=== PATIENT | female | born 1945 | race Caucasian/White ===

== ENCOUNTER 2021-04-23 02:38 | Inpatient (IN) | payer MEDICARE, MEDICAID, SELFPAY ==
[2021-04-23] VITALS (8 sets, daily range): BP systolic 113–148; BP diastolic 59–72; PULSE 80–102; RESP 16–19; TEMP 36.6–37.1; O2SAT 96–98
--- NOTE | 2021-04-23 02:47 | HPE_ITS ---
Date of service: 04/23/21 Time of Service: 06:30 Assessment and Plan Assessment and plan (1) Sepsis: Status: Acute Assessment and plan: Due to RLE cellulitis and ?diabetic foot ulcer. Await blood cultures done at [facility]. Obtain XR R foot and podiatry consult. IVF. Continue vancomycin/cefepime initiated at [facility]. Trend CRP. (2) Cellulitis of right lower extremity: Status: Acute Assessment and plan: As above (3) Acute kidney injury superimposed on chronic kidney disease: Status: Acute Assessment and plan: In setting of sepsis/dehydration. Provide IVF. Avoid nephrotoxic medications. (4) Near syncope: Status: Acute Assessment and plan: Monitor on tele. Obtain echo. Troponin and EKG negative at [facility]. (5) Type 2 diabetes mellitus: Assessment and plan: Will verify medication doses with daughter. Cover with SSI. Plan to continue long acting insulin once doses are confirmed. (6) Ambulatory dysfunction: Status: Acute Assessment and plan: Consult PT (7) DVT prophylaxis: Status: Acute Assessment and plan: SC heparin given FABIOLA (8) Discharge planning issues: Status: Acute Assessment and plan: Full code by default - needs to be verified with daughter if there are any advanced directives. History of Present Illness History of Present Illness Chief Complaint: weakness, near-syncope Narrative: MS Thapa is a 76 year old female with PMHx of IDDM2, HTN, hyperlipidemia, psoriasis, who was transferred to [facility] from [facility] ED where she had presented with weakness, difficulty getting up from a seated position and a near syncopal episode at home while trying to get up. The patient was found to be febrile to 100.6 Her RLE was hot, red, and nontender. She is not sure how long ago her leg turned red, but states it happens every winter. She had a negative EKG and troponin. She had a leucocytosis of 22.7, evidence of FABIOLA with Cr of 2.4 (last 1.5 3 years ago. She was hydrated intravenously and empirically initiated on vancomycing/cefepime. There was also a finding of eschar between digits 3 and 4. She was hemodynamically stable. Hospitalist admission was requested. By the time of my examination, she is feeling better. 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) Sensorineural hearing loss, bilateral (Acute 04/17/13) Medical History (Updated 04/23/21 @ 07:26 by Gia Urbina MD) Bilateral knee pain Chronic obstructive lung disease CKD (chronic kidney disease) Essential tremor 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 Hyperlipidemia Hypertension Obesity, morbid, BMI 40.0-49.9 Psoriasis Sensorineural hearing loss, bilateral (04/11/15) Shoulder pain Type 2 diabetes mellitus Uterine cancer Surgical History (Updated 04/23/21 @ 07:26 by Gia Urbina MD) H/O cataract extraction History of nasal surgery Hx of adenoidectomy Hx of colonoscopy Hx of hysterectomy Hx of tonsillectomy Family History Mother Cancer uterine Drug abuse Daughter Diabetes Hypertension Social History Smoking/Tobacco Use Status: Former Tobacco Use Quit Date: 05/13/89 Smoking risk assessment performed?: Yes Alcohol Intake: never Drug use: Never Substance use type: does not use Household members: children What is your relationship status?: Panel score (0-1 are the most socially isolated patients): 0 Do you feel safe at home: Yes Do you feel safe in your relationship?: Yes Meds Allergies and Home Medications Allergies Allergy/AdvReac Type Severity Reaction Status Date / Time No Known Allergies Allergy Verified 12/22/20 09:39 Home Medications Medication Instructions Recorded Confirmed Type albuterol sulfate 90 mcg/actuation 2 puff INHALATION Q4H PRN PRN 12/22/20 04/23/21 History aerosol inhaler amantadine HCl 100 mg capsule 100 mg PO DAILY AM 12/22/20 04/23/21 History amlodipine 10 mg tablet 10 mg PO DAILY 12/22/20 04/23/21 History clobetasol 0.05 % topical cream 1 applic TOPICAL BID 12/22/20 01/24/21 History dulaglutide 0.75 mg/0.5 mL 0.75 mg SUBCUT QWEEK 12/22/20 01/24/21 History subcutaneous pen injector fluticasone propionate 110 2 puff INHALATION BID 12/22/20 04/23/21 History mcg/actuation HFA aerosol inhaler folic acid 1 mg tablet 1 mg PO DAILY 12/22/20 01/24/21 History glipizide 5 mg tablet 5 mg PO DAILY tab 12/22/20 04/23/21 History insulin detemir U-100 100 unit/mL 28 unit SUBCUT DAILY ml 12/22/20 04/23/21 History (3 mL) subcutaneous pen lisinopril 5 mg tablet 5 mg PO DAILY 12/22/20 04/23/21 History mecobalamin (vitamin B12) 1,000 1,000 mcg SUBLINGUAL .3x week tab 12/22/20 01/24/21 History mcg disintegrating tablet,sublingual mometasone 100 mcg/actuation HFA 2 puff INHALATION BID 12/22/20 04/23/21 History aerosol inhaler primidone 50 mg tablet 50 mg PO TID tab 12/22/20 04/23/21 History simvastatin 20 mg tablet 20 mg PO DAILY 12/22/20 04/23/21 History topiramate 25 mg sprinkle capsule 25 mg PO BID 12/22/20 01/24/21 History triamcinolone acetonide 1 applic TOPICAL BID 04/23/21 04/23/21 History Allergy/Medication Comments:: Our medication list does not match the list that came with the patient from [facility]. We will verify it with the patient's daughter. Exam Narrative Exam Narrative: General: Very pleasant elderly female, A&Ox2, poor history provider, tremulous Neurological: A&Ox2, tremulous, no focal deficits Psychiatric: Appropriate speech pattern/content Skin: Psoriasis throughout; RLE erythema 1[address] to the knee. R foot has dressing on plantar side. Erythema L dorsal surface of the foot HEENT: Atraumatic, normocephalic, EOMI, dry MM, clear oropharynx, no submandibular or cervical lymphadenopathy, no goiter or JVD Cardiovascular: RRR, no m/r/g Lungs: CTAB (diminished) Gastrointestinal: Soft, nontender, nondistended Genitourinary: deferred Extremities: +1 BLE edema; see skin exam Results Imaging Imaging Studies: Awaiting CXR read information (reported to be negative by [facility] ED provider). Labs Result diagrams: 04/23/21 05:35 04/23/21 05:35
[2021-04-23] MEDS: Lactated Ringers 1,000 ML 75 ML IV ×2 (04:20→18:25)
[2021-04-23 07:42] LABS: Abs Immature Grans 0.24 10^3/uL (0.0-0.06); Absolute Basophil Count 0.11 10^3/uL (0.0-0.2); Basophils % 0.5; Eosinophils % 0.5; HCT 37.2 % (36.0-46.0); HGB 11.7 g/dL (11.2-15.7); Immature Grans % 1.1; MCH 29.1 pg (27.0-33.0); MCHC 31.5 % (32.0-36.0); MCV 92.5 fL (80-95); Neutrophils % 81.9; Nucleated RBC 0 %; RBC 4.02 10^6/uL (3.93-5.22); RDW 14.5 % (11.7-14.6); RDW-SD 49.1 fL; WBC 21.77 10^3/uL (4.4-10.8)
[2021-04-23 07:43] LABS: Absolute Eosinophil Count 0.11 10^3/uL (0.0-0.7); Absolute Lymphocyte Count 2.61 10^3/uL (1.2-3.4); Absolute Monocyte Count 0.87 10^3/uL (0.1-0.8); Absolute Neutrophil Count 17.83 10^3/uL (1.2-6.7)
[2021-04-23 07:54] LABS: Anion Gap 6.7 mmol/L (3-11); BUN 27 mg/dL (7-18); C-Reactive Protein 17.53 mg/dL (0.0-0.3); CO2 25.3 mmol/L (21.0-32.0); CREATININE 2.3 mg/dL (0.55-1.02); Calcium 8.5 mg/dL (8.5-10.1); Chloride 102 mmol/L (98-107); Estimated GFR 20.73 (mL/min/1.73m2); Glucose 160 mg/dL (74-106); Magnesium 1.6 mg/dL (1.8-2.4); Potassium 4.4 mmol/L (3.5-5.1); Sodium 134 mmol/L (136-145)
[2021-04-23 08:19] LABS: Procalcitonin 2.8 ng/mL
--- NOTE | 2021-04-23 09:54 | PT.INIE ---
Date of service: 04/23/21 Time of Service: 09:53 PT Notes Visit Reasons: cellulitis RLE, near-syncope Inpatient Physical Therapy Evaluation Date: 04/23/2021 Referring Doctor: Dr. Gia Urbina PT Orders: PT CONSULT: Limited ability Precautions: Fall, standard, activities as tolerated Patient Profile/Admitting Diagnosis: Patient is a 76 year old female with PMHx of IDDM2, HTN, hyperlipidemia, psoriasis, who was transferred to [facility] from [facility] where she had presented with weakness, difficulty getting up from a seated position and a near syncopal episode at home while trying to get up. 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) Sensorineural hearing loss, bilateral (Acute 04/17/13) Medical History (Updated 04/23/21 @ 07:26 by Gia Urbina MD) Bilateral knee pain Chronic obstructive lung disease CKD (chronic kidney disease) Essential tremor 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 Lives with her daughter. Current Functional Limitations: Functional mobility, community distance ambulation Equipment Owned/DME: Cane Subjective: Patient states has been feeling a little better today since admission to [facility]. Denies any significant pain. States that she was sitting in the chair earlier for breakfast. Did walk with the nurse Dario who indicated she use her IV pole to assist with her walking across the room to the toilet. Objective: General Observation: Telemetry, IV left upper extremity Mental Status: Alert and oriented x3 Pain: 0/10 ROM: Right Upper Extremity: Shoulder, elbow and wrist within functional limits Left Upper Extremity: Shoulder, elbow and wrist within functional limits Right Lower Extremity: Hip, knee and ankle within functional limit Left Lower Extremity: Hip, knee and ankle are within functional Strength: Right Upper Extremity: Glenohumeral joint flexion 4/5, abduction 4 -/5, bicep and tricep 4/5, good network coordinator Left Upper Extremity: Glenohumeral joint flexion 4/5, abduction 4 -/5, bicep and triceps 4/5, good network coordinator Right Lower Extremity: Straight leg raise with 0 degree lag. Hip flexion, quads and hamstrings 4/5, hip abduction 4 -/5, hip adduction 5/5. Ankle dorsiflexion and plantarflexion 4/5 Left Lower Extremity: Straight leg raise with 0 degree lag. Hip flexion, quads and hams is 4/5, hip abduction 4 -/5, hip adduction 5/5. Ankle dorsiflexion plantarflexion 4/5 Sensation: Intact sensation light touch throughout bilateral upper and lower extremities Bed Mobility/Transfers: Supine to sit: Min assist x1, head of bed 40 degrees Sit to supine: Min assist x1 Sit to stand: Standby assist Stand to sit: Standby assist Bed mobility: Unable to transition to head of bed. Did require mod assist x2 to reposition in bed with head of bed at 0. Gait: Ambulate 15 feet x 2 with front wheel walker and standby assist. Patient did indicate she was feeling a little fatigued towards the end of her walking. Balance: Static Sitting: Normal Dynamic Sitting: Normal Static Standing: Fair Dynamic Standing: Fair Special Tests: Mobility Limitations Standardized Measure [facility] AM-PAC 6 clicks Basic Mobility Inpatient Short Form: Raw Score:18 Standardized Score: 43.63 CMS Score: 46.58% Informed Consent/Education: Patient instructed in purpose of PT consult and plan of care. Assessment: Patient is a 76 year old female referred to physical therapy services with the diagnosis of near syncope, generalized weakness and limited ability. Patient presents with clinical signs and symptoms consistent with above diagnosis, as demonstrated by the following impairment level findings: Motor function, muscle control. Impairments are contributing to the following functional limitations: AMPAC score. Did recommend use of front wheel walker while staying in the hospital as she was using IV pole which was quite steady enough for her. Am hopeful that she will be able to resume community ambulation distances with a cane as per baseline. Patient presents with clinical signs and symptoms consistent with diagnosis, as demonstrated by the following impairment level findings: 1. Decreased activity tolerance 2. Generalized weakness 3. Fatigue 4. SOB Impairments are contributing to the following functional limitations: 1. Decreased activity tolerance 2. Increased dependence transfers 3. Difficulty with ambulation Patient is assessed as a X Low 19597 [] Moderate 64789 [] High 37858 complexity based on the following: History: See above Examination: See above Presentation: Stable Decision Making: AM PAC score 46.58% Goals: Goals X1 week 1. Supine-Sit: Independent 2. Sit-Supine : Independent 3. Sit-Stand: Independent 4. Stand-Sit: Independent 5. Bed-Chair: Independent 6. Chair-Bed: Independent 7. Gait: Community distances greater than 250 feet with single-point cane 8. Stairs: Standby assist Plan of Care/Treatment Plan: 1-2x/day, 7 days/week x 1 week. Plan of care has been reviewed with the PRIMARY CARE COORDINATOR providing the service under Physical Therapy direction. Initiate Physical Therapy intervention for strengthening, bed mobility, transfers, gait, stairs, balance training, use of assistive device. DISCHARGE RECOMMENDATIONS: X Home with services: Home health physical therapy TREATMENT CODE/TIME: 51415. 9:53?10:20 Thank you for this referral. Jesus Mcfarland PT, DPT Disclaimer: This note was created using Kik voice recognition software. It was reviewed for major content. However, there may be multiple small discrepancies and errors due to the voice recognition aspects of the software.
[2021-04-23] MEDS: Nystatin POWDER 60 GM JAR TP ×3 (10:01→20:15)
--- NOTE | 2021-04-23 10:10 | INITIAL_ITS ---
- If Service Date Differs Date of service: 04/23/21 Time of Service: 10:10 Care Management Initial Assess REASON FOR HOSPITALIZATION:: Cellulitis RLE, near-syncope PAST MEDICAL HISTORY/PAST SURGICAL HISTORY:: Medical History (Updated 04/23/21 @ 07:26 by Gia Urbina MD). Bilateral knee pain. Chronic obstructive lung disease. CKD (chronic kidney disease). Essential tremor. 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 Hyperlipidemia. Hypertension. Obesity, morbid, BMI 40.0- 49.9. Psoriasis. Sensorineural hearing loss, bilateral (04/11/15). Shoulder pain. Type 2 diabetes mellitus. Uterine cancer. Surgical History (Updated 04/23/21 @ 07:26 by Gia Urbina MD). H/O cataract extraction. History of nasal surgery. Hx of adenoidectomy. Hx of colonoscopy. Hx of hysterectomy. Hx of tonsillectomy PREVIOUS FUNCTIONAL STATUS/SOCIAL/FAMILY SUPPORTS:: Resides in [place] with her daughterInez ([phone], ) who provides assistance with ADLs. CURRENT FUNCTIONAL STATUS:: Jazmyne is lying in bed sleeping when CM observes her. Jazmyne had a long night and was not admitted to the floor until the car body inspector hours-CM permitted her to rest. ADVANCE DIRECTIVES:: None on file at [facility]. Has patient been provided with info about the portal/API?: No Did the patient sign up for the portal?: No CODE STATUS:: Full Code INSURANCE COVERAGE / FINANCIAL ISSUES:: Medicare. Medicaid CURRENT HOME/COMMUNITY SERVICES/EQUIPMENT:: [place]: followed by ENT has hearing aides. PRIMARY CARE PHYSICIAN:: Manuel Jason POTENTIAL DISCHARGE NEEDS:: Evaluations for increased supports. Follow up appointments. PATIENT/FAMILY EDUCATION NEEDS:: Review discharge instructions, discuss Ask Me Three. ANTICIPATED BARRIERS TO DISCHARGE:: None identified. TRANSPORTATION:: Via private vehicle with Inez nowak. PLAN:: Anticipate Jazmyne will return home with her daughterInez when ready per MD. She will be evaluated for increased services supports prior to discharge, will be followed by wound care and have podiatry consult as well. Anticipate ongoing wound managment and orders for [facility] RN/PT/OT through [facility] upon discharge. CM continues to follow.
--- NOTE | 2021-04-23 11:44 | WOUNDCONS_ITS ---
- If Service Date Differs Date of service: 04/23/21 Time of Service: 11:00 Wound Initial Evaluation Narrative: Patient is a 76 yof seen here for Sepsis and Cellulitis. She has a PMX significant for DM2 Ambulatory dysfunction and acute kidney injury. She agrees to have a wound consult performed. H&P, labs, allergies, and other pertinent information were reviewed. - Wound Right Lower Tib/Fib(lower leg) Wound Type: Other (cellulitis) Wound General Appearance: Reddened, Unapproximated Wound Bed Greatest Portion: Dusky Red Wound Surrounding Tissue Appearance: Dark Red Wound Length: 31.3 cm Wound Width: 19.4 cm Wound Depth: 0.1 cm Wound Drainage Amount: None Wound Drainage Odor: None/Absent Wound Drainage Description: No drainage Wound Topical Solution/Irrigant: Antibiotic Irrigant Wound Debridement Method: Mechanical Wound Debridement Result: Other (dry skin removed) Wound Debridement Amount of Tissue Removed: Moderate Left Foot Wound Type: Other Wound General Appearance: Reddened, Unapproximated (dry, flaky skin) Wound Surrounding Tissue Appearance: Dark Red Wound Length: 7 cm Wound Width: 19 cm Wound Depth: 0.1 cm Wound Drainage Amount: None Wound Drainage Odor: None/Absent Wound Drainage Description: No drainage Wound Topical Solution/Irrigant: Antibiotic Irrigant Wound Debridement Method: Mechanical Wound Debridement Result: Healthy Tissue Revealed Wound Debridement Amount of Tissue Removed: Moderate - Circulation, Sensation, Motion Edema Degree: 3+ Peripheral Pulse Strength: Normal Capillary Refill: Less than 3 seconds Sensation Description: Within Normal Limits Skin Temperature: Cool Skin Color: Normal - Pain Pain Level: 0 Patient is a diabetic. the bottoms of her feet and between the toes are cracked and open and make an area that is a portal for entry of infection. - Treatment/Dressing Change Topicals/Ointments: Other (lachydrin) Cleanse With: Anasept, Debrisoft Additional Other Comments: Podiatry consult requested - Recomendation Recomendation:: Right lower extremity. [place] area with Anasept spray and let dwell for two minutes. Clean with a moistened Debrisoft sponge. Allow to dry. Apply Ammonium Lactate lotion to the affected area. Perform daily. Left foot. [place] area with Anasept spray and let dwell for two minutes. Clean with a moistened Debrisoft sponge. Allow to dry. Apply Ammonium Lactate lotion to the affected area. Perform daily. Physcian/Nurse Practioner Notified: Yes (Dr. Pearson) Referrals: Podiatry Treatment Time - Time Total Time Spent with Patient: 75 minutes - Patient Will be Seen Weekly Treatment: daily - For: For:: 1 week
[2021-04-23] MEDS: Lachydrin 12% LOTION 225 GM BTL TP (12:08)
[2021-04-23] MEDS: CEFEPIME 1 GM in Normal Saline 50 ML IVPB (12:09)
[2021-04-23 15:22] LABS: Platelet Count 244 10^3/uL (130-400)
[2021-04-23] MEDS: Heparin 5,000 UNITS/ML VIAL 5000 UNITS SC ×2 (15:40→22:46)
[2021-04-23] MEDS: Insulin Aspart 300 UNITS/3 ML PEN SC ×2 (17:09→22:51)
--- NOTE | 2021-04-23 19:22 | W.PODCONSULT ---
Date of service: 04/23/21 Time of Service: 19:22 History of Present Illness History of Present Illness Chief Complaint: cellulitis RLE/fissures Narrative: 76-year-old female seen at bedside for evaluation extensive scaling affecting both feet with multiple fissures. Admitted with cellulitis of the right foot. 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 Hyperlipidemia Hypertension Obesity, morbid, BMI 40.0-49.9 Psoriasis Sensorineural hearing loss, bilateral (04/11/15) Shoulder pain Type 2 diabetes mellitus Uterine cancer Surgical History H/O cataract extraction History of nasal surgery Hx of adenoidectomy Hx of colonoscopy Hx of hysterectomy Hx of tonsillectomy Family History Mother Cancer uterine Drug abuse Daughter Diabetes Hypertension Social History Smoking/Tobacco Use Status: Former Tobacco Use Quit Date: 05/13/89 Smoking risk assessment performed?: Yes Alcohol Intake: never Drug use: Never Substance use type: does not use Household members: children What is your relationship status?: Panel score (0-1 are the most socially isolated patients): 0 Do you feel safe at home: Yes Do you feel safe in your relationship?: Yes Exam Narrative Exam Narrative: 76-year-old female seen at bedside who was admitted with cellulitis of right lower extremity and sepsis with a known history of psoriasis. She verbalizes that she sees a physician down in [place] who manages her psoriasis. Unclear but she has been applying medication the last time she was seen for this problem. On examination she has cellulitis to the mid acuña region of her right lower extremity both anteriorly and to a lesser extent posteriorly. The skin shows extensive psoriatic changes affecting the plantar aspects of both feet, web spaces, dorsal aspect of the feet, both legs going up to her thighs as well as on her upper extremity. She has fissuring along the lateral aspect at the level of the fifth metatarsal base of the left foot, fissuring of the second and third webspaces of the right foot with dried blood noted, plantar midfoot region, and lateral mid fifth metatarsal region. All of these stages are partial-thickness in nature. None of them appear to be grossly infected at this time they are most likely the portal of entry for the cellulitis affecting the right lower extremity. The toenails are thickened yellowed dystrophic hypertrophic elongated and in need of debridement. Whether the nails are fungal or psoriatic is unclear, nevertheless treatment ranging the same and that would be debridement for comfort measures. Muscle groups appear to be 5 out of 5 bilaterally although somewhat diminished . Skeletal exam appears grossly benign. Small joint degenerative arthritic changes noted, no acute findings. Neurologically toes are downgoing. No focal deficit noted at this time. Impressions: Extensive psoriatic changes both lower extremities Cellulitis right lower extremity Multiple partial-thickness fissures as above Dystrophic nails psoriatic versus fungal Plan: Continue with current cefepime for cellulitis. Triamcinolone acetonide will be discontinued and its potency will not be effective in managing pressure and I will order potent steroid clobetasol 0.05% cream for daily application. I manually electrically debrided all toenails to patient tolerance as well as the patient's affecting both feet partial thickness. No sinus tracking or undermining was appreciated. She has extensive plaque formation which was reduced to patient tolerance. I did explain to Jazmyne that the psoriasis may be manageable but requires active and ongoing home utilization of creams and ointments steroid on a regular basis to maintain suppression of her psoriasis. Thank you for the consultation. Dictated with Sultana naturally speaking not reviewed for accuracy Results Last Vital Signs Temp 36.7 C 04/23/21 15:36 Pulse 102 H 04/23/21 15:36 Resp 19 04/23/21 15:36 BP 148/59 H 04/23/21 15:36 Pulse Ox 98 04/23/21 15:36 Labs Result diagrams: 04/23/21 15:14 04/23/21 07:35 Labs: Laboratory Results - last 24 hr 04/23/21 04/23/21 04/23/21 07:35 07:35 07:35 WBC 21.77 H RBC 4.02 Hgb 11.7 Hct 37.2 MCV 92.5 MCH 29.1 MCHC 31.5 L RDW 14.5 Plt Count MPV Immature Gran % 1.1 Neutrophils % 81.9 Lymphocytes % 12.0 Monocytes % 4.0 Eosinophils % 0.5 Basophils % 0.5 Nucleated RBC % 0 Absolute Neutrophils 17.83 H Absolute Lymphocytes 2.61 Absolute Monocytes 0.87 H Absolute Eosinophils 0.11 Absolute Basophils 0.11 Sodium 134 L Potassium 4.4 Chloride 102 Carbon Dioxide 25.3 Anion Gap 6.7 BUN 27 H Creatinine 2.3 H Estimated GFR/1.73 m2 20.73 Glucose 160 H Calcium 8.5 Magnesium 1.6 L C-Reactive Protein 17.53 H Procalcitonin 2.8 04/23/21 15:14 WBC RBC Hgb Hct MCV MCH MCHC RDW Plt Count 244 MPV Immature Gran % Neutrophils % Lymphocytes % Monocytes % Eosinophils % Basophils % Nucleated RBC % Absolute Neutrophils Absolute Lymphocytes Absolute Monocytes Absolute Eosinophils Absolute Basophils Sodium Potassium Chloride Carbon Dioxide Anion Gap BUN Creatinine Estimated GFR/1.73 m2 Glucose Calcium Magnesium C-Reactive Protein Procalcitonin
--- NOTE | 2021-04-24 | DI.US_ITS ---
Exam(s) US LOWER EXTREMITY VENOUS RT EXAM: US LOWER EXTREMITY VENOUS RT CLINICAL HISTORY: RLE edema TECHNIQUE: Grayscale, color, and doppler imaging of the deep venous system of the right lower extrem ity was performed. COMPARISON: No exams were available for comparison FINDINGS: There is no evidence of intraluminal thrombus and there is normal compression and augmentation demons trated within the common femoral vein, femoral vein, and popliteal vein. In the ipsilateral calf the interrogated veins also exhibit normal compression/ augmentation properti es. The ipsilateral saphenofemoral junction is patent. IMPRESSION: 1. No evidence of DVT in the right lower extremity. DATA REPOSITORY:
[2021-04-24] MEDS: CEFEPIME 1 GM in Normal Saline 50 ML IVPB ×2 (00:10→11:35)
[2021-04-24] MEDS: VANCOMYCIN 750 MG in Normal Saline 250 ML 250 MG IV (04:23)
[2021-04-24] MEDS: Heparin 5,000 UNITS/ML VIAL 5000 UNITS SC ×3 (06:17→22:33)
[2021-04-24 07:33] LABS: Abs Immature Grans 0.23 10^3/uL (0.0-0.06); Absolute Eosinophil Count 0.56 10^3/uL (0.0-0.7); Absolute Lymphocyte Count 3.65 10^3/uL (1.2-3.4); Absolute Monocyte Count 1.51 10^3/uL (0.1-0.8); Basophils % 0.4; Eosinophils % 2.6; HGB 11.4 g/dL (11.2-15.7); Immature Grans % 1.1; Lymphocytes % 16.9; MCH 28.9 pg (27.0-33.0); MCHC 30.8 % (32.0-36.0); MCV 93.9 fL (80-95); MPV 10.9 fL (8.0-11.0); Nucleated RBC 0 %; Platelet Count 247 10^3/uL (130-400); RBC 3.94 10^6/uL (3.93-5.22); RDW 14.6 % (11.7-14.6); RDW-SD 50.7 fL; WBC 21.59 10^3/uL (4.4-10.8)
[2021-04-24 07:41] VITALS: BP 156/32; PULSE 96; RESP 20; TEMP 36.6; O2SAT 99
[2021-04-24 07:41] LABS: Absolute Basophil Count 0.09 10^3/uL (0.0-0.2); Absolute Neutrophil Count 15.54 10^3/uL (1.2-6.7)
[2021-04-24 07:46] LABS: Diff Comment Diff Reviewed; RBC Morphology Normal
[2021-04-24 07:51] LABS: Anion Gap 8.5 mmol/L (3-11); BUN 23 mg/dL (7-18); CO2 24.5 mmol/L (21.0-32.0); CREATININE 1.9 mg/dL (0.55-1.02); Calcium 8.2 mg/dL (8.5-10.1); Chloride 106 mmol/L (98-107); Estimated GFR 25.84 (mL/min/1.73m2); Glucose 178 mg/dL (74-106); Potassium 4.2 mmol/L (3.5-5.1); Sodium 139 mmol/L (136-145)
--- NOTE | 2021-04-24 08:00 | DI.US_ITS ---
APPROVED REPORT EXAM: Comprehensive 2D, Doppler, and color-flow Echocardiogram Patient Location: In-Patient Room/Bed: 212 Book Solicitor: Rebeca Billy RDCS (AE) Indications: Near Syncope Other Information Study Quality: Adequate Conclusion Left Ventricle : The left ventricle is normal size. The left ventricular systolic function is normal. The left ventricular ejection fraction is within the normal range. There is normal left ventricular wall thickness. There is normal LV segmental wall motion. LVEF is 60%. Right Ventricle : Right ventricle is grossly normal in size. Right ventricular systolic function is g rossly normal. The RVSP is 35.4 mmHg. Atria : The left atrium size is normal. The right atrium size is normal. Great Vessels : The aortic root is normal in size. The ascending aorta is normal in size. Aortic arch is not well visualized. IVC is normal in size and collapses >50% with inspiration. See remainder of study for further details. Wall motion Left Ventricle The left ventricle is normal size. The left ventricular systolic function is normal. The left ventric ular ejection fraction is within the normal range. There is normal left ventricular wall thickness. T here is normal LV segmental wall motion. There is no ventricular septal defect visualized. LVEF is 60 %. Right Ventricle Right ventricle is grossly normal in size. Right ventricular systolic function is grossly normal. The RVSP is 35.4 mmHg. Atria The left atrium size is normal. The right atrium size is normal. The interatrial septum is intact wit h no evidence for an atrial septal defect. Aortic Valve The aortic valve is normal in structure. Aortic valve is trileaflet. There is no aortic valvular sten osis. No aortic regurgitation is present. Mitral Valve The mitral valve is normal in structure. No evidence of mitral valve stenosis. Trace mitral regurgita tion. Tricuspid Valve The tricuspid valve is normal in structure. There is no tricuspid valve stenosis. Trace tricuspid reg urgitation. Pulmonic Valve The pulmonary valve is normal in structure. There is no pulmonic valvular stenosis. There is no pulmo jerry valvular regurgitation. Great Vessels The aortic root is normal in size. The ascending aorta is normal in size. Aortic arch is not well vis ualized. IVC is normal in size and collapses >50% with inspiration. Pericardium There is no pericardial effusion. 2D Dimensions IVSD d PLAX 0.99 cm F: 0.6-1.0 LV Vol A2C d MOD 83.8 mL LVPW d PLAX 0.97 cm F: 0.6 - 1.0 LV Vol A4C d MOD 78.1 mL LVID d PLAX 4.24 cm F: 3.8 - 5.2 LA vol/ BSA A2C s A-L 18.6 mL/m2 LVDs 2.80 cm F: 2.2 - 3.5 LA vol/ BSA A4C s A-L 23.9 mL/m2 Ao Root d 2.96 cm F: 2.7 - 3.3 LA Vol/ BSA Biplane s A-L 22.1 mL/m2 RA Area A4C 10.60 cm2 LA Area A4C s MOD 16.39 cm2 RA Vol/ BSA A4C s A-L 12.5 mL/m2 LA Area A2C s MOD 13.79 cm2 Ao Asc Diam d 3.11 cm F: 2.3 - 3.1 LV EF A4C MOD 59.9 % LV EF Teichholz 61.7 % LV EF A2C MOD 60.1 % LVEF (Becerra's) 59.35 % F: 54 - 74 LV EF Biplane MOD 59.4 % LV Volume 64.03 mL F: 46 - 106 SV 48.41 mL LV Volume Index 36.58 mL/m2 F: 29 - 61 SV Index 27.59 mL/m2 LV Vol Biplane MOD 81.6 mL FS 32.85 % M-Mode TAPSE 2.40 cm (M/F) >1.7 LV Diastology MV E' medial 0.083 (>0.07 m/s) MV E' lateral 0.105 (>0.1 m/s) Aortic Valve LVOT Area 3.01 cm2 AoV Area Vmax 2.61 cm2 LVOT Vmax 1.07 m/s AoV Area/ BSA (Vmax) 1.49 cm2/m2 LVOT Mean Osito. 0.70 m/s HARJEET Mean Osito. 2.33 cm2 LVOT Peak Grad 4.6 mmHg HARJEET Mean Osito. Index 1.33 cm2/m2 LVOT Mean Grad 2.3 mmHg LVOT VTI 0.208 m LVOT Diam s 1.95 cm AoV Vmax 1.23 m/s Velocity Ratio 0.86 AoV Mean Osito. 0.90 m/s AoV Peak Grad 6.1 mmHg LVOT SV 62.75 mL AoV Mean Grad 3.6 mmHg AoV VTI 0.233 m AoV Area VTI 2.69 cm2 AoV Area/ BSA (VTI) 1.53 cm/m2 Pulmonary Valve PV Vmax 1.10 (0.5-1.5 m/s) RVOT Peak Gr. 3.66 mmHg PV Peak Grad 4.8 mmHg RVOT Mean Gr. 1.95 mmHg PV Mean Grad 2.6 mmHg RVOT VTI 0.219 m PV VTI 0.186 m RVOT Vmax 0.96 m/s Tricuspid Valve TR Peak Grad 32.3 mmHg TR Vmax 2.85 m/s RA Pressure 3.00 mmHg RVSP (TR) 35.4 mmHg
[2021-04-24] MEDS: Insulin Aspart 300 UNITS/3 ML PEN SC ×3 (08:11→21:13)
[2021-04-24] MEDS: Doxazosin 1 MG TAB PO (08:12)
[2021-04-24] MEDS: amLODIPine 10 MG TAB PO (08:12)
[2021-04-24] MEDS: Clobetasol 0.05% CREAM 15 GM TUBE TP (08:12)
[2021-04-24] MEDS: Nystatin POWDER 60 GM JAR TP ×3 (08:12→21:14)
[2021-04-24] MEDS: Folic Acid 1 MG TAB PO (08:12)
[2021-04-24] MEDS: Metoprolol CR 25 MG TABCR PO (08:12)
[2021-04-24] MEDS: Lachydrin 12% LOTION 225 GM BTL TP (08:22)
--- NOTE | 2021-04-24 09:00 | DI.RAD_ITS ---
Exam(s) XR FOOT RT COMPLETE EXAM: XR FOOT RT COMPLETE CLINICAL HISTORY: R foot wounds. TECHNIQUE: 2D digital imaging was performed. COMPARISON: No exams were available for comparison FINDINGS: There is generalized soft tissue swelling of the dorsal aspect of the foot. There is no evidence of fracture nor diastasis of the Lisfranc joint. No osseous lesions. No erosio ns. No radiographic of osteomyelitis. On the lateral view there is a small calcification seen just dorsal to the head of the great toe prox imal phalanx. This measures approximately 1mm. Possibly related to prior avulsion injury at this le kayla. IMPRESSION: Findings as above but no radiographic evidence of osteomyelitis DATA REPOSITORY: RADIATION DOSE DELIVERED:
[2021-04-24] MEDS: Normal Saline Flush 10 ML SYR IVP ×2 (12:18→21:13)
--- NOTE | 2021-04-24 12:54 | PT.INTREAT ---
Date of service: 04/24/21 Time of Service: 11:21 PT Notes Visit Reasons: Cellulitis RLE,Near-Syncope Inpatient Physical Therapy Treatment Note [facility] Date: 04/24/2021 PRECAUTIONS: Fall, Activity as tolerated SUBJECTIVE: Jazmyne is pleasant and agreeable to participating in PT. She states that she is feeling better, although continues to feel weaker than her baseline. She is agreeable to using FWW at home if she discharges to home prior to regaining full strength. OBJECTIVE: PAIN: No c/o pain BED MOBILITY/TRANSFERS Sit-stand: I Stand-sit: I Bed-Chair: I Chair-bed: I GAIT Assistive Device: FWW Weight bearing: Full Assist: S Distance: 300' STAIRS: Up/down 3x4 and 2x6 using B rails and a step-over pattern independently. ASSESSMENT: Patient tolerated session without complaint. She demonstrates steady gait and pacing with use of FWW. PLAN: Continue with global strengthening for improved activity tolerance. TREATMENT CODE/TIME: 19 minutes; 00154 (11:21)
[2021-04-24 15:30] VITALS: BP 149/69; PULSE 85; RESP 18; TEMP 36.6; O2SAT 99
--- NOTE | 2021-04-24 16:19 | PGE_ITS ---
Date of Service Date of service: 04/24/21 Time of Service: 16:19 Assessment and Plan Assessment and plan (1) Sepsis: Start date: 04/24/21 Start time: 16:33 Status: Acute Assessment and plan: Due to RLE cellulitis and ?diabetic foot ulcer. BC positive at [facility]. Unsure what is growing or sensitivities. Micro looking into that. Repeat BC in am, crp podiatry consult, no evidence of osteo by xray IVF dcd No dvt to RLE Continue vancomycin/cefepime Trend CRP. (2) Cellulitis of right lower extremity: Start date: 04/24/21 Start time: 16:34 Status: Acute Assessment and plan: As above (3) Acute kidney injury superimposed on chronic kidney disease: Start date: 04/24/21 Start time: 16:35 Status: Acute Assessment and plan: In setting of sepsis/dehydration. improving with hydration, dcd IVF Avoid nephrotoxic medications. (4) Near syncope: Start date: 04/24/21 Start time: 16:35 Status: Acute Assessment and plan: No reports on teley, dc. Echo: Conclusion Left Ventricle : The left ventricle is normal size. The left ventricular systolic function is normal. The left ventricular ejection fraction is within the normal range. There is normal left ventricular wall thickness. There is normal LV segmental wall motion. LVEF is 60%.Right Ventricle : Right ventricle is grossly normal in size. Right ventricular systolic function is grossly normal. The RVSP is 35.4 mmHg. Atria : The left atrium size is normal. The right atrium size is normal. Great Vessels : The aortic root is normal in size. The ascending aorta is normal in size. Aortic arch is not well visualized. IVC is normal in size and collapses >50% with inspiration. Troponin and EKG negative at [facility]. (5) Psoriasis: Start date: 04/24/21 Start time: 16:38 Status: Acute Assessment and plan: Uses cream, c/o itching, entire body is covered with psoriasis. She would benefit from a harbor pilot to treat. Will start low dose prednisone to treat psoriasis to see if there is any relief (6) Type 2 diabetes mellitus: Start date: 04/24/21 Start time: 16:39 Assessment and plan: Cover with SSI. Plan to continue long acting insulin once doses are confirmed. (7) Ambulatory dysfunction: Start date: 04/24/21 Start time: 16:39 Status: Acute Assessment and plan: working with PT (8) DVT prophylaxis: Start date: 04/24/21 Start time: 16:40 Status: Acute Assessment and plan: SC heparin given FABIOLA (9) Discharge planning issues: Start date: 04/24/21 Start time: 16:40 Status: Acute Assessment and plan: Full code by default - needs to be verified with daughter if there are any advanced directives. Subjective Subjective Patient reports: no new complaints Interval history since last seen: Patient has no complaints. RLE with receding erythema. Positive BC from [facility] on broad spectrum antibiotics, will have micro find out what is growing and sensitivities. Repeat blood cultures in am, crp as well. She currently has psoriasis to have her entire body, uses topical cream only. She would benefit from a rheumatology consult for better management. Will start on prednisone at this time to help. Exam Narrative Exam Narrative: General: Very pleasant elderly female, A&Ox3,lying in bed with family at bedside Neurological: A&Ox3,, no focal deficits Psychiatric: Appropriate speech pattern/content Skin: Psoriasis throughout; RLE erythema to mid acuña. R foot has dressing on plantar side. Erythema L dorsal surface of the foot HEENT: Atraumatic, normocephalic, EOMI, dry MM, clear oropharynx, no submandibular or cervical lymphadenopathy, no goiter or JVD Cardiovascular: RRR, no m/r/g Lungs: CTAB (diminished) Gastrointestinal: Soft, nontender, nondistended Extremities: +1 BLE edema; see skin exam Objective Last Vital Signs Temp 36.6 C 04/24/21 07:41 Pulse 96 H 04/24/21 07:41 Resp 20 04/24/21 07:41 BP 156/32 H 04/24/21 07:41 Pulse Ox 99 04/24/21 07:41 Laboratory Results - last 24 hr 04/24/21 04/24/21 06:35 06:35 WBC 21.59 H RBC 3.94 Hgb 11.4 Hct 37.0 MCV 93.9 MCH 28.9 MCHC 30.8 L RDW 14.6 Plt Count 247 MPV 10.9 Immature Gran % 1.1 Neutrophils % 72.0 Lymphocytes % 16.9 Monocytes % 7.0 Eosinophils % 2.6 Basophils % 0.4 Nucleated RBC % 0 Absolute Neutrophils 15.54 H Absolute Lymphocytes 3.65 H Absolute Monocytes 1.51 H Absolute Eosinophils 0.56 Absolute Basophils 0.09 RBC Morphology Normal Sodium 139 Potassium 4.2 Chloride 106 Carbon Dioxide 24.5 Anion Gap 8.5 BUN 23 H Creatinine 1.9 H Estimated GFR/1.73 m2 25.84 Glucose 178 H Calcium 8.2 L
[2021-04-24] MEDS: predniSONE 1 MG TAB 2 MG PO (16:53)
--- NOTE | 2021-04-24 18:03 | NUR.NOTE ---
Addendum entered by Tania Upton LPN 04/24/21 22:45: At 2100 notified by pharmacy that we do not have the topiramate sprinkle cap in our pharmacy and do not have primadone per ANDRÉS Siegel. An attempt was made to call the family and see if they could bring it from home tomorrow. UNable to make contact on either number, no VM available. Per patient, may be able to get in touch with them better in the morning. Original Note: Nursing Note: Spoke with pt family this afternoon, asked about tremors if they were baseline for her. Family states she takes toperimate and primadone at home for tremors. 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 Patient is not receiving those medications currently with us. ANDRÉS Siegel notified who then notified MD Galvin.
--- NOTE | 2021-04-24 18:53 | CMPROGNOTE_ITS ---
- If Service Date Differs Date of service: 04/24/21 Time of Service: 18:54 Care Management Progress Note S/O: Jazmyne was sitting up in her chair when CM met with her. She reported that she is feeling better today. She stated that she receives services currently, and feels that she is doing well at home with her daughter. She reported that she did well working with PT today. Per report, she had positive blood cultures at [facility], and they will be repeated today. CM will continue to follow. A: Jazmyne is a 76 year old female admitted to [facility] on 04/23/21 with cellulitis RLE, near syncope. P: Anticipate Jazmyne will return home with her daughter, Inez when ready per MD. She will be evaluated for increased services supports prior to discharge, will be followed by wound care and have podiatry consult as well. Anticipate ongoing wound management and a resumption of VNA RN/PT/OT through [facility] upon discharge. CM continues to follow.
[2021-04-24 19:28] VITALS: BP 145/71; PULSE 88; RESP 16; TEMP 37.3; O2SAT 94
[2021-04-24] MEDS: Mometasone 220 MCG 14 DOSE INHALER 2 PUFF IH (21:12)
[2021-04-24] MEDS: Simvastatin 20 MG TAB PO (21:12)
[2021-04-25] VITALS: BP 140/69; PULSE 87; RESP 18; TEMP 37; O2SAT 100
[2021-04-25] MEDS: CEFEPIME 1 GM in Normal Saline 50 ML IVPB (00:03)
[2021-04-25] MEDS: Heparin 5,000 UNITS/ML VIAL 5000 UNITS SC ×3 (05:43→22:03)
[2021-04-25] MEDS: Mometasone 220 MCG 14 DOSE INHALER 2 PUFF IH ×2 (07:52→20:34)
[2021-04-25] MEDS: Topiramate 25 MG TAB PO ×2 (07:53→20:34)
[2021-04-25] MEDS: amLODIPine 10 MG TAB PO (07:53)
[2021-04-25] MEDS: predniSONE 1 MG TAB 2 MG PO (07:53)
[2021-04-25] MEDS: Folic Acid 1 MG TAB PO (07:53)
[2021-04-25] MEDS: Metoprolol CR 25 MG TABCR PO (07:53)
[2021-04-25] MEDS: Doxazosin 1 MG TAB PO (07:53)
[2021-04-25] MEDS: Primidone 50 MG TAB PO ×2 (07:54→20:34)
[2021-04-25] MEDS: Clobetasol 0.05% CREAM 15 GM TUBE TP (07:54)
[2021-04-25] MEDS: Lachydrin 12% LOTION 225 GM BTL TP (07:54)
[2021-04-25] MEDS: VANCOMYCIN 750 MG in Normal Saline 250 ML 250 MG IV (07:57)
[2021-04-25 07:59] LABS: Abs Immature Grans 0.24 10^3/uL (0.0-0.06); Absolute Basophil Count 0.08 10^3/uL (0.0-0.2); Basophils % 0.4; Eosinophils % 5.4; HCT 35.3 % (36.0-46.0); HGB 10.9 g/dL (11.2-15.7); Immature Grans % 1.3; Lymphocytes % 18.3; MCH 29.3 pg (27.0-33.0); MCHC 30.9 % (32.0-36.0); MCV 94.9 fL (80-95); MPV 10.3 fL (8.0-11.0); Monocytes % 7.1; Neutrophils % 67.5; Nucleated RBC 0 %; Platelet Count 272 10^3/uL (130-400); RBC 3.72 10^6/uL (3.93-5.22); RDW 14.6 % (11.7-14.6); RDW-SD 51.4 fL; WBC 19.11 10^3/uL (4.4-10.8)
[2021-04-25 08:09] LABS: Absolute Eosinophil Count 1.03 10^3/uL (0.0-0.7); Absolute Monocyte Count 1.36 10^3/uL (0.1-0.8)
[2021-04-25 08:11] LABS: Magnesium 1.6 mg/dL (1.8-2.4)
[2021-04-25 08:21] LABS: Anion Gap 7.8 mmol/L (3-11); BUN 19 mg/dL (7-18); CO2 26.2 mmol/L (21.0-32.0); CREATININE 1.6 mg/dL (0.55-1.02); Chloride 106 mmol/L (98-107); Estimated GFR 31.51 (mL/min/1.73m2); Glucose 88 mg/dL (74-106); Potassium 3.9 mmol/L (3.5-5.1); Sodium 140 mmol/L (136-145)
[2021-04-25 08:28] VITALS: BP 135/77; PULSE 82; RESP 20; TEMP 36.8; O2SAT 98
[2021-04-25 08:30] LABS: Procalcitonin 1.9 ng/mL
[2021-04-25] MEDS: Nystatin POWDER 60 GM JAR TP ×3 (09:21→20:38)
[2021-04-25] MEDS: Normal Saline Flush 10 ML SYR IVP ×2 (09:21→20:38)
[2021-04-25] MEDS: MAGNESIUM SULFATE 4 GM/100 ML BAG IVPB (09:35)
[2021-04-25 10:07] LABS: C-Reactive Protein 13.61 mg/dL (0.0-0.3)
[2021-04-25] MEDS: Linezolid 600 MG TAB PO ×2 (11:07→20:34)
[2021-04-25] MEDS: Insulin Aspart 300 UNITS/3 ML PEN SC ×3 (13:13→22:03)
--- NOTE | 2021-04-25 15:05 | PGE_ITS ---
Date of Service Date of service: 04/25/21 Time of Service: 10:30 Assessment and Plan Assessment and plan (1) Sepsis: Start date: 04/25/21 Start time: 10:30 Status: Acute Assessment and plan: Due to RLE cellulitis and ?diabetic foot ulcer. BC positive at [facility]. Report today revealed Strep G. Echo with no vegetations, switched to po linzeolid from cefepime due to little to no improvement on evaluation Repeat BC pending podiatry following patient no evidence of osteo by xray CRP down from 17 to 13 Procal 1.9 No dvt to RLE Afebrile, possible discharge tomorrow or if blood cx negative. (2) Cellulitis of right lower extremity: Start date: 04/25/21 Start time: 10:30 Status: Acute Assessment and plan: As above (3) Acute kidney injury superimposed on chronic kidney disease: Start date: 04/25/21 Start time: 10:30 Status: Resolved Assessment and plan: At baseline. Continue to monitor. (4) Near syncope: Start date: 04/25/21 Start time: 10:30 Status: Acute Assessment and plan: No reports on teley, dc., sounds more likely vagal response, though will do orthostatics Echo: Conclusion Left Ventricle : The left ventricle is normal size. The left ventricular systolic function is normal. The left ventricular ejection fraction is within the normal range. There is normal left ventricular wall thickness. There is normal LV segmental wall motion. LVEF is 60%.Right Ventricle : Right ventricle is grossly normal in size. Right ventricular systolic function is grossly normal. The RVSP is 35.4 mmHg. Atria : The left atrium size is normal. The right atrium size is normal. Great Vessels : The aortic root is normal in size. The ascending aorta is normal in size. Aortic arch is not well visualized. IVC is normal in size and collapses >50% with inspiration. Troponin and EKG negative at [facility]. (5) Psoriasis: Start date: 04/25/21 Start time: 10:30 Status: Acute Assessment and plan: Uses cream, c/o itching, entire body is covered with psoriasis. She would benefit from a metal tester to treat. Will start low dose prednisone to treat psoriasis to see if there is any relief (6) Type 2 diabetes mellitus: Start date: 04/25/21 Start time: 10:30 Assessment and plan: Cover with SSI. Plan to continue long acting insulin once doses are confirmed. (7) Ambulatory dysfunction: Start date: 04/25/21 Start time: 10:30 Status: Acute Assessment and plan: working with PT (8) DVT prophylaxis: Start date: 04/25/21 Start time: 10:30 Status: Acute Assessment and plan: SC heparin given FABIOLA (9) Discharge planning issues: Start date: 04/25/21 Start time: 10:30 Status: Acute Assessment and plan: Full code by default - needs to be verified with daughter if there are any advanced directives. discussed with Dr. Pearson Subjective Subjective Patient reports: no new complaints Interval history since last seen: Patient sitting up in chair. C/o itching for psoriasis, will order atarax. Patient growing strep g in blood, Report from [facility]. She was on cefepime and vanco with little improvement. Placed on linezolid PO. If too expensive can down grade to augmentin. Cellulitis appeared the same today, not much improvement. Exam Narrative Exam Narrative: General: Very pleasant elderly female, A&Ox3,lying in bed with family at bedside Neurological: A&Ox3,, no focal deficits Psychiatric: Appropriate speech pattern/content Skin: Psoriasis throughout; RLE erythema to mid acuña little to no improvement. R foot has dressing on plantar side. Erythema L dorsal surface of the foot HEENT: Atraumatic, normocephalic, EOMI, dry MM, clear oropharynx, no subm andibular or cervical lymphadenopathy, no goiter or JVD Cardiovascular: RRR, no m/r/g Lungs: CTAB (diminished) Gastrointestinal: Soft, nontender, nondistended Extremities: +1 BLE edema; see skin exam Objective Last Vital Signs Temp 36.8 C 04/25/21 08:28 Pulse 82 04/25/21 08:28 Resp 20 04/25/21 08:28 BP 135/77 04/25/21 08:28 Pulse Ox 98 04/25/21 08:28 Laboratory Results - last 24 hr 04/25/21 04/25/21 04/25/21 07:20 07:20 07:20 WBC 19.11 H RBC 3.72 L Hgb 10.9 L Hct 35.3 L MCV 94.9 MCH 29.3 MCHC 30.9 L RDW 14.6 Plt Count 272 MPV 10.3 Immature Gran % 1.3 Neutrophils % 67.5 Lymphocytes % 18.3 Monocytes % 7.1 Eosinophils % 5.4 Basophils % 0.4 Nucleated RBC % 0 Absolute Neutrophils 12.90 H Absolute Lymphocytes 3.50 H Absolute Monocytes 1.36 H Absolute Eosinophils 1.03 H Absolute Basophils 0.08 Sodium 140 Potassium 3.9 Chloride 106 Carbon Dioxide 26.2 Anion Gap 7.8 BUN 19 H Creatinine 1.6 H Estimated GFR/1.73 m2 31.51 Glucose 88 D Calcium 8.0 L Magnesium 1.6 L C-Reactive Protein 13.61 H Procalcitonin 04/25/21 07:20 WBC RBC Hgb Hct MCV MCH MCHC RDW Plt Count MPV Immature Gran % Neutrophils % Lymphocytes % Monocytes % Eosinophils % Basophils % Nucleated RBC % Absolute Neutrophils Absolute Lymphocytes Absolute Monocytes Absolute Eosinophils Absolute Basophils Sodium Potassium Chloride Carbon Dioxide Anion Gap BUN Creatinine Estimated GFR/1.73 m2 Glucose Calcium Magnesium C-Reactive Protein Procalcitonin 1.9
--- NOTE | 2021-04-25 15:18 | PTTR_ITS ---
Date of service: 04/25/21 Time of Service: 15:18 PT Notes Visit Reasons: Cellulitis RLE,Near-Syncope Inpatient Physical Therapy Treatment Note [facility] Date: 04/25/2021 PRECAUTIONS: Fall. Activity as tolerated. SUBJECTIVE: Agreeable to today's session. Still did not feel safe using the cane after trying it out for about 5 steps inside her room. [place] more secure with hallway ambulation using the walker. OBJECTIVE: PAIN: Denies BED MOBILITY/TRANSFERS Sit-stand: Independent Stand-sit: Independent Bed-Chair: Independent Chair-bed: Independent GAIT Assistive Device: FWW Weight bearing: Full Assist: Supervision Distance: 250 feet +250 feet. Deviation: Unstable using the SBQC for 5 steps. Ever was able to perform unassisted ambulation inside therapy room for about 10 steps with no LOB. STAIRS: Tolerated 6 x 4 inch steps and 4 x 6 inch steps holding onto bilateral rails using step over step gait pattern requiring supervision. THERA EX: Tolerated standing level exercises of bilateral heel raises and partial knee bends x15 reps while holding onto bilateral rails. ASSESSMENT: Demonstrates improving strength, activity tolerance, and functional mobility level with continued skilled services. PLAN: Progress strength and mobility level as tolerated in anticipation of di scharge to home when cleared by hospitalist. DISCHARGE RECOMMENDATIONS: [] Home with no services [] [X] Home with services patient will benefit from home health PT services in order to progress mobility level using least restrictive assistive ambulatory device, assess home safety, identify additional equipment needs, and establish a functional maintenance program that will increase ability of patient to remain at home. [] Home with outpatient PT [] [] SNF for continued rehabilitation [] [] [facility] [] [] SNF versus LTC based on ability to participate and progress [] TREATMENT CODE/TIME: 9753 0 x 15 minutes, 9711 0 x 12 minutes beginning at 15:18 p.m.
[2021-04-25] MEDS: predniSONE 20 MG TAB 60 MG PO (16:29)
[2021-04-25 16:33] VITALS: BP 150/62; PULSE 72; RESP 18; TEMP 36.5; O2SAT 96
--- NOTE | 2021-04-25 18:44 | PDOC.CMPRO ---
- If Service Date Differs Date of service: 04/25/21 Time of Service: 18:44 Care Management Progress Note S/O: Jazmyne was sitting up in her chair when CM met with her. She reported that she was feeling much better today. Per report, MD is awaiting sensitivities to determine her antibiotic course. Jazmyne was pleasant and agreeable to the plan, as she will remain at [facility] until her outpatient antibiotic course is clear. CM will continue to follow. A: Jazmyne is a 76 year old female admitted to [facility] on 04/23/21 with cellulitis RLE, near syncope. P: Anticipate Jazmyne will return home with her daughter, Inez when ready per MD. She will be evaluated for increased services supports prior to discharge, will be followed by wound care and have podiatry consult as well. Anticipate ongoing wound management and a resumption of VNA RN/PT/OT through [facility] upon discharge. CM continues to follow.
[2021-04-25] MEDS: Simvastatin 20 MG TAB PO (20:34)
[2021-04-25] MEDS: Magnesium Chloride 64 MG TABCR PO (20:34)
[2021-04-25 23:30] VITALS: BP 159/76; PULSE 77; RESP 18; TEMP 36.3; O2SAT 98
[2021-04-26] MEDS: Heparin 5,000 UNITS/ML VIAL 5000 UNITS SC ×2 (05:45→13:31)
[2021-04-26 07:13] LABS: HCT 35.5 % (36.0-46.0); HGB 10.9 g/dL (11.2-15.7); MCH 29.2 pg (27.0-33.0); MCHC 30.7 % (32.0-36.0); MCV 95.2 fL (80-95); Nucleated RBC 0 %; Platelet Count 308 10^3/uL (130-400); RBC 3.73 10^6/uL (3.93-5.22); RDW 14.1 % (11.7-14.6); RDW-SD 49.9 fL; WBC 17.85 10^3/uL (4.4-10.8)
[2021-04-26 07:20] VITALS: BP 157/75; PULSE 74; RESP 17; TEMP 36.4; O2SAT 99
[2021-04-26 07:33] LABS: Anion Gap 6.5 mmol/L (3-11); BUN 20 mg/dL (7-18); CO2 26.5 mmol/L (21.0-32.0); CREATININE 1.6 mg/dL (0.55-1.02); Calcium 7.8 mg/dL (8.5-10.1); Chloride 103 mmol/L (98-107); Estimated GFR 31.51 (mL/min/1.73m2); Glucose 247 mg/dL (74-106); Potassium 4.9 mmol/L (3.5-5.1); Sodium 136 mmol/L (136-145)
[2021-04-26 07:43] LABS: Absolute Basophil Count 0.18 10^3/uL (0.0-0.2); Absolute Eosinophil Count 0.18 10^3/uL (0.0-0.7); Absolute Lymphocyte Count 3.39 10^3/uL (1.2-3.4); Absolute Monocyte Count 0.18 10^3/uL (0.1-0.8); Absolute Neutrophil Count 13.92 10^3/uL (1.2-6.7); Bands % 3; Diff Comment Manual Differential; RBC Morphology Normal
[2021-04-26] MEDS: Doxazosin 1 MG TAB PO (08:01)
[2021-04-26] MEDS: predniSONE 1 MG TAB 2 MG PO (08:02)
[2021-04-26] MEDS: Topiramate 25 MG TAB PO (08:02)
[2021-04-26] MEDS: Magnesium Chloride 64 MG TABCR PO (08:02)
[2021-04-26] MEDS: Metoprolol CR 25 MG TABCR PO (08:02)
[2021-04-26] MEDS: amLODIPine 10 MG TAB PO (08:02)
[2021-04-26] MEDS: Folic Acid 1 MG TAB PO (08:02)
[2021-04-26] MEDS: Primidone 50 MG TAB PO (08:02)
[2021-04-26] MEDS: Linezolid 600 MG TAB PO (08:02)
[2021-04-26] MEDS: Insulin Aspart 300 UNITS/3 ML PEN SC ×3 (08:03→17:19)
[2021-04-26] MEDS: Mometasone 220 MCG 14 DOSE INHALER 2 PUFF IH (08:12)
[2021-04-26] MEDS: Clobetasol 0.05% CREAM 15 GM TUBE TP (09:15)
[2021-04-26] MEDS: Lachydrin 12% LOTION 225 GM BTL TP (09:15)
[2021-04-26] MEDS: Nystatin POWDER 60 GM JAR TP ×2 (09:15→13:34)
--- NOTE | 2021-04-26 10:56 | INDS_ITS ---
Date of service: 04/26/21 Time of Service: 10:56 PT Notes Visit Reasons: Cellulitis RLE,Near-Syncope Physical Therapy Inpatient Discharge Summary Date: 04/26/2021 Dates of service: 04/23/2021 through 04/26/2021 This is a clinical summary of care provided for the duration of dates listed above. No charge was made in the completion of this documentation. Referring Doctor: Dr. Gia Urbina PT Orders: PT CONSULT: Limited ability Precautions: Fall, standard, activities as tolerated Patient Profile/Admitting Diagnosis: Patient is a 76 year old female with PMHx of IDDM2, HTN, hyperlipidemia, psoriasis, who was transferred to [facility] from [facility] ED where she had presented with weakness, difficulty getting up from a seated position and a near syncopal episode at home while trying to get up. 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) Sensorineural hearing loss, bilateral (Acute 04/17/13) Medical History (Updated 04/23/21 @ 07:26 by Gia Urbina MD) Bilateral knee pain Chronic obstructive lung disease CKD (chronic kidney disease) Essential tremor 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 Lives with her daughter. Current Functional Limitations: Functional mobility, community distance ambulation Equipment Owned/DME: Cane Subjective: Agreeable to PT session. Denies headache, chest pain, and dizziness throughout session. Hopeful about going home today. Objective: General Observation: IV access in left knee. Mental Status: Alert and oriented x3 Pain: 0/10 ROM: Right Upper Extremity: Shoulder, elbow and wrist within functional limits Left Upper Extremity: Shoulder, elbow and wrist within functional limits Right Lower Extremity: Hip, knee and ankle within functional limit Left Lower Extremity: Hip, knee and ankle are within functional Strength: Right Upper Extremity: Glenohumeral joint flexion 4/5, abduction 4 -/5, bicep and tricep 4/5, good assembler wet wash Left Upper Extremity: Glenohumeral joint flexion 4/5, abduction 4 -/5, bicep and triceps 4/5, good assembler wet wash Right Lower Extremity: Straight leg raise with 0 degree lag. Hip flexion, quads and hamstrings 4/5, hip abduction 4 -/5, hip adduction 5/5. Ankle dorsiflexion and plantarflexion 4/5 Left Lower Extremity: Straight leg raise with 0 degree lag. Hip flexion, quads and hams is 4/5, hip abduction 4 -/5, hip adduction 5/5. Ankle dorsiflexion plantarflexion 4/5 Sensation: Intact sensation light touch throughout bilateral upper and lower extremities Bed Mobility/Transfers: Supine to sit: Independent Sit to supine: Independent Sit to stand: Independent Stand to sit: Independent Bed mobility: Independent Gait: Able to perform level surface ambulation of 250 feet using front wheeled walker independently with step through gait pattern. Balance: Static Sitting: Normal Dynamic Sitting: Normal Static Standing: Good Dynamic Standing: Fair Assessment: Patient demonstrates significant functional mobility improvement during this episode of care achieving all goals initially established as listed below. Goals: Goals X1 week 1. Supine-Sit: Independent MET 2. Sit-Supine : Independent MET 3. Sit-Stand: Independent MET 4. Stand-Sit: Independent MET 5. Bed-Chair: Independent MET 6. Chair-Bed: Independent MET 7. Gait: Community distances greater than 250 feet with single-point cane MET 8. Stairs: Standby assist MET DISCHARGE RECOMMENDATIONS: [X ] Home with services: Home health physical therapy TREATMENT CODE/TIME: 32731 x 23 minutes beginning at 10:56 AM. Thank you for the opportunity to participate in the care of this patient. Lashae Francois PT, DPT, CLT [facility] [place], [place]
[2021-04-26] MEDS: Normal Saline Flush 10 ML SYR IVP (11:25)
--- NOTE | 2021-04-26 14:31 | W.PALLCONSUL ---
Date of service: 04/26/21 Time of Service: 10:00 History of Present Illness History of Present Illness Chief Complaint: Goals of Care Narrative: 76 y/o Ms. Samano, inpatient admission 2/2 sepsis r/t RLE cellulitis, was seen my myself and Dr. Salamanca for [facility]; purpose of consult was to discuss goals of care and Jazmyne's discharge home; no major concerns were raised from Case Management or the nursing team. pt was sitting in chair upon arrival, she was engaged throughout our visit w/difficulty processing and answering GOC and PMHx/FHx questions; Pt denies any major complaints today; pt has h/o psoriasis, worsening in winter, which is presumed to be the catalyst to RLE cellulitis, reports is f/b derm in [place], unsure of next or previous appts, reports this is first skin infection; does use home topical treatments, but has some new ones now, denies c/o w/PO prednisone which was started this hospitalization Endorses feeling occasionally dizzy and shakey; takes a ?tremor pill?; denies syncopal episodes denies pain, difficulties w/appetite/intake, incontinence, GI concerns, cough/SOB, or concerns w/home ADLs, daytime sleepiness or changes in energy; reports has h/o alcohol and smoking, denies recent use, denies use of any illicit or recreational substances; pt reports walks w/o assistive devices in home, reports has fall 1x/year-mo, most recent fall was day she was transferred to hospital w/this admission, after an episode of dizziness; reports uses cane/walker when outside of home w/no c/o; reports leaves home 4x/wk for: drives, playing bingo, shopping; reports support system includes daughters Inez and Lissa, sister Karthikeyan; Inez lives w/pt, w/significant MH issues which requires occasional stints in [facility], pt feels Inez can provide some at home assistance PRN; Lissa lives further away but will be able to provide PRN home assistance; Karthikeyan lives upstairs and can also help PRN; pt agrees that HH would be helpful in transition home; reports , in home and transferred to hospital prior to pronouncement pt has not completed DPOA, it is unclear of whom she would designate proxy at this time; she was not able to answer questions r/t COLST or AD pt goals include living for family, spending time w/3 grandchildren, 3 greats; would like to return to living at home, unassisted Upcoming appts: PCP Dr. Manuel [place] in [place] Assessment and Plan Assessment and plan (1) Encounter for palliative care: Start date: 04/26/21 Start time: 10:04 Status: Acute Assessment and plan: pt remains Full Code and w/o DPOA; unclear of who she would pick for proxy, encouraged pt to consider what she wants for her live, what matters for her quality of life and who she trusts for future decisions; discussed w/pt benefits of HH coming in for transition home from hospital for wound and skin care, home safety and ensuring her support team has appropriate training, pt agrees to this plan; pt has f/u w/PCP scheduled already, intends to make sure visit is scheduled s/p discharge; will call PCP Dr. Manuel Jason to update on pt status (2) Psoriasis: Status: Chronic Assessment and plan: encouraged f/u appt scheduled w/dermatology, continue prednisone and topical therapies (3) Counseling regarding goals of care: Status: Acute Assessment and plan: encouraged continued conversations w/PCP, to readdress as f/u visits; left DPOA paperwork w/pt (4) Anxiety: Status: Chronic Assessment and plan: nervous, slightly anxious, scared about and dying, didn't like to address difficult topics (5) History of alcohol abuse: Assessment and plan: unclear of when sobriety occurred (6) Falls: Status: Acute Assessment and plan: fall hx unclear, high risk for falls; recommend PT and safety review (7) Gait instability: Status: Chronic Assessment and plan: uses walker and cane when outside home (8) Cellulitis of right lower extremity: Status: Acute Assessment and plan: high risk for reoccurrence Review of Systems Constitutional Constitutional: Reports as per HPI Eyes Comments: wears glasses for reading; ENT Ears, Nose, Mouth, and Throat: Denies dysphagia Cardiovascular Cardiovascular: Reports as per HPI Respiratory Respiratory: Reports as per HPI Gastrointestinal Gastrointestinal: Reports as per HPI and Denies dysphagia Integumentary/Breasts Skin/Breast: Reports dry skin, Reports lesions, Reports erythema and Reports rash Comments: psoriasis, chronic, reoccurring in winter months; worse over legs and arms; denies abd/back involvement PFSH All Active Problems (Updated 04/26/21 @ 15:24 by Keerthi Grewal NP) Gait instability (Chronic) Falls (Acute) Anxiety (Chronic) Counseling regarding goals of care (Acute) Encounter for palliative care (Acute) Psoriasis (Chronic) Discharge planning issues (Acute) Ambulatory dysfunction (Acute) DVT prophylaxis (Acute) Near syncope (Acute) Cellulitis of right lower extremity (Acute) Impacted cerumen of both ears (Acute) Conductive hearing loss, external ear (Chronic 08/04/15) Sensorineural hearing loss, bilateral (Acute 04/17/13) Medical History (Updated 04/26/21 @ 15:24 by Keerthi Grewal NP) Bilateral knee pain Chronic obstructive lung disease CKD (chronic kidney disease) Essential tremor 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 History of alcohol abuse Hyperlipidemia Hypertension Obesity, morbid, BMI 40.0-49.9 Sensorineural hearing loss, bilateral (04/11/15) Shoulder pain Type 2 diabetes mellitus Uterine cancer Surgical History H/O cataract extraction History of nasal surgery Hx of adenoidectomy Hx of colonoscopy Hx of hysterectomy Hx of tonsillectomy Family History Mother Cancer uterine Drug abuse Daughter Diabetes Hypertension Social History Smoking/Tobacco Use Status: Former Tobacco Use Quit Date: 05/13/89 Smoking risk assessment performed?: Yes Alcohol Intake: never Drug use: Never Substance use type: does not use Household members: children What is your relationship status?: Panel score (0-1 are the most socially isolated patients): 0 Do you feel safe at home: Yes Do you feel safe in your relationship?: Yes Exam Const General: cooperative, comfortable and no acute distress Orientation: alert, awake and oriented x3 HENMT Head: normal to inspection, normocephalic and no acral cyanosis Ears: hearing grossly normal bilaterally Neck Neck: normal visual inspection and no JVD Resp Effort & Inspection: normal respiratory effort, able to speak in complete sentences and no audible wheezes Auscultation: clear to auscultation bilaterally Cardio Rate: regular rate Rhythm: regular rhythm Heart Sounds: S1 normal and S2 normal Pulses: radial pulses present GI Palpation: soft, no guarding and nontender Auscultation: normal bowel sounds Skin General skin exam: other (generalized psoriasis patches BLE, BUE, not present on trunk, face, neck) Lesions: lesion noted (RLE plantar foot/heels w/open cracking and bleeding) Neuro Cognition: abnormal cognition (could answer superficial questions, could not reflect or go deeper) Psych Appearance: grossly normal Speech and Movement: speech and movement normal Affect: anxious affect Attitude: cooperative Insight: poor Judgment: poor Results Last Vital Signs Temp 97.5 F L 04/26/21 07:20 Pulse 74 04/26/21 07:20 Resp 17 04/26/21 07:20 BP 157/75 H 04/26/21 07:20 Pulse Ox 99 04/26/21 07:20 Labs Result diagrams: 04/26/21 06:14 04/26/21 06:14 Labs: Laboratory Results - last 24 hr 04/26/21 04/26/21 06:14 06:14 WBC 17.85 H RBC 3.73 L Hgb 10.9 L Hct 35.5 L MCV 95.2 H MCH 29.2 MCHC 30.7 L RDW 14.1 Plt Count 308 MPV 11.0 Immature Gran % 0.0 Neutrophils % 75.0 Band Neutrophils % 3 Lymphocytes % 19.0 Monocytes % 1.0 Eosinophils % 1.0 Basophils % 1.0 Nucleated RBC % 0 Absolute Neutrophils 13.92 H Absolute Lymphocytes 3.39 Absolute Monocytes 0.18 Absolute Eosinophils 0.18 Absolute Basophils 0.18 RBC Morphology Normal Sodium 136 Potassium 4.9 D Chloride 103 Carbon Dioxide 26.5 Anion Gap 6.5 BUN 20 H Creatinine 1.6 H Estimated GFR/1.73 m2 31.51 Glucose 247 H D Calcium 7.8 L
--- NOTE | 2021-04-26 14:43 | PGE_ITS ---
Date of Service Date of service: 04/26/21 Time of Service: 14:43 Assessment and Plan Assessment and plan (1) Sepsis: Status: Resolved Assessment and plan: Due to RLE cellulitis and ?diabetic foot ulcer. BC positive at [facility]. Report today revealed Strep G. Echo with no vegetations, will downstep to augmentin, repeat blood cultures negative to date Repeat BC pending podiatry following patient no evidence of osteo by xray CRP down from 17 to 13 Procal 1.9 No dvt to RLE (2) Cellulitis of right lower extremity: Status: Acute Assessment and plan: As above (3) Acute kidney injury superimposed on chronic kidney disease: Status: Resolved Assessment and plan: At baseline. Continue to monitor. (4) Near syncope: Status: Acute Assessment and plan: No reports on teley, dc., sounds more likely vagal response, though will do orthostatics Echo: Conclusion Left Ventricle : The left ventricle is normal size. The left ventricular systolic function is normal. The left ventricular ejection fraction is within the normal range. There is normal left ventricular wall thickness. There is normal LV segmental wall motion. LVEF is 60%.Right Ventricle : Right ventricle is grossly normal in size. Right ventricular systolic function is grossly normal . The RVSP is 35.4 mmHg. Atria : The left atrium size is normal. The right atrium size is normal. Great Vessels : The aortic root is normal in size. The ascending aorta is normal in size. Aortic arch is not well visualized. IVC is normal in size and collapses >50% with inspiration. Troponin and EKG negative at [facility]. (5) Psoriasis: Status: Acute Assessment and plan: Uses cream, c/o itching, entire body is covered with psoriasis. She would benefit from a valet cashier to treat. Will start low dose prednisone to treat psoriasis to see if there is any relief (6) Type 2 diabetes mellitus: Assessment and plan: Cover with SSI. Plan to continue long acting insulin once doses are confirmed. (7) Ambulatory dysfunction: Status: Acute Assessment and plan: working with PT (8) DVT prophylaxis: Status: Acute Assessment and plan: SC heparin given FABIOLA (9) Discharge planning issues: Status: Acute Assessment and plan: Full code by default - needs to be verified with daughter if there are any advanced directives. plan for discharge tomorrow discussed with Dr. Pearson Subjective Subjective Patient reports: no new complaints, feels better, tolerating liquids well, tolerating a regular diet and afebrile Exam Const General: cooperative, comfortable and no acute distress Nutritional Appearance: obese Orientation: alert, awake and oriented x3 Chest Chest: normal inspection of the chest Resp Effort & Inspection: normal respiratory effort Cardio Rate: regular rate Rhythm: regular rhythm GI Inspection: normal to inspection Palpation: soft Skin General skin exam: crusts, dry skin, erythema and lichenification Rashes: rashes noted (within skin markings) Objective Last Vital Signs Temp 36.4 C L 04/26/21 07:20 Pulse 74 04/26/21 07:20 Resp 17 04/26/21 07:20 BP 157/75 H 04/26/21 07:20 Pulse Ox 99 04/26/21 07:20 Laboratory Results - last 24 hr 04/26/21 04/26/21 06:14 06:14 WBC 17.85 H RBC 3.73 L Hgb 10.9 L Hct 35.5 L MCV 95.2 H MCH 29.2 MCHC 30.7 L RDW 14.1 Plt Count 308 MPV 11.0 Immature Gran % 0.0 Neutrophils % 75.0 Band Neutrophils % 3 Lymphocytes % 19.0 Monocytes % 1.0 Eosinophils % 1.0 Basophils % 1.0 Nucleated RBC % 0 Absolute Neutrophils 13.92 H Absolute Lymphocytes 3.39 Absolute Monocytes 0.18 Absolute Eosinophils 0.18 Absolute Basophils 0.18 RBC Morphology Normal Sodium 136 Potassium 4.9 D Chloride 103 Carbon Dioxide 26.5 Anion Gap 6.5 BUN 20 H Creatinine 1.6 H Estimated GFR/1.73 m2 31.51 Glucose 247 H D Calcium 7.8 L
[2021-04-26 15:30] VITALS: BP 154/62; PULSE 72; RESP 17; TEMP 36.4; O2SAT 97
--- NOTE | 2021-04-26 16:06 | DSE_ITS ---
Date of service: 04/26/21 Time of Service: 16:06 DS: Diagnosis Discharge Diagnosis (1) Psoriasis: Status: Chronic (2) Anxiety: Status: Chronic (3) History of alcohol abuse: (4) Falls: Status: Acute (5) Gait instability: Status: Chronic (6) Cellulitis of right lower extremity: Status: Acute Discharge Plan Disposition Patient Disposition: HOME W/HOME HEALTH SERVICE Condition: Improving Discharge Details Reason For Visit: Cellulitis RLE,Near-Syncope Admit Date/Time: 04/23/21 02:38 Admit Provider: Gia Urbina Attending Provider: Gia Urbina Primary Care Provider: Manuel Jason [facility] Course Hospital Course: This is a 76 year old female with complex medical history including diabetes mellitus type 2, chronic kidney disease, psoriasis, hypertension who was transferred from [facility] where she presented for near syncope. Her work up was concerning for right lower extremity cellulitis, blood cultures where drawn, she was given IV fluids and started on vanco/cefepime. She was transported as no beds available for inpatient treatment. Her blood cultures grew strep, repeat cultures negative. she responded well to treatment and im proved dramatically. She was downstepped to augmentin for discharge, she will complete 10 days of treatment. PT evaluated and she was re-ambulated safely, recommendations for home health PT/OT. She is discharged to home, will resume previous home medication. discharge discussed with Dr Pearson Home Meds and New Rx's Prescriptions: New amoxicillin-pot clavulanate 875-125 mg Tablet 1 tab PO BID Qty: 18 RF: 0 clobetasol 0.05 % Cream 1 applic topical DAILY Qty: 45 RF: 0 Continued clobetasol 0.05 % cream 1 applic topical BID RF: 0 primidone 50 mg tablet 50 mg PO TID RF: 0 amlodipine 10 mg tablet 10 mg PO DAILY RF: 0 folic acid 1 mg tablet 1 mg PO DAILY RF: 0 simvastatin 20 mg tablet 20 mg PO DAILY RF: 0 mecobalamin (vitamin B12) 1,000 mcg tablet,disintegrating 1,000 mcg sublingual .3x week RF: 0 glipizide 5 mg tablet 5 mg PO DAILY RF: 0 amantadine HCl 100 mg capsule 100 mg PO DAILY AM RF: 0 Levemir FlexTouch U-100 Insuln 100 unit/mL (3 mL) insulin pen 45 unit subcut DAILY RF: 0 Flovent HFA 110 mcg/actuation HFA aerosol inhaler 2 puff inhalation BID RF: 0 albuterol sulfate [ProAir HFA] 90 mcg/actuation HFA aerosol inhaler 2 puff inhalation Q4H PRN PRNRF: 0 topiramate 25 mg capsule, sprinkle 25 mg PO BID RF: 0 lisinopril 5 mg tablet 5 mg PO DAILY RF: 0 Trulicity 0.75 mg/0.5 mL pen injector 3 mg subcut QWEEK RF: 0 triamcinolone acetonide 0.5 % Cream 1 applic TOPICAL BID RF: 0 doxazosin 1 mg Tablet 1 mg PO DAILY RF: 0 metoprolol succinate 25 mg Tablet Extended Release 24 Hr 25 mg PO DAILY RF: 0 loperamide 2 mg Capsule 2 mg PO PRN PRNRF: 0 Discharge Instructions Instructions: Cellulitis (DC) Stand Alone Forms: Nursing Discharge Form Referrals: Manuel Jason [Primary Care Provider] - (Call your Primary Care Doctor to make a follow up appointment for 2 week ) Activity:: Activity as Tolerated Equipment/Supplies:: No Equipment Needed Diet:: As Tolerated Discharge Orders Discharge Orders: Discharge Order (Routine); Ordered 04/26/21 Ordered By: Kriss Pinon Discharge Data Discharge Date/Time-TO BE ENTERED AT DEPARTURE: 04/26/21 17:25 DS: Summary Time Spent with Patient providing and/or coordinating discharge services: Greater than 30 minutes Status at Discharge Functional status at discharge: uses cane/walker Overall status at discharge: patient is progressing back to baseline Mental Status: mental status grossly normal Speech and Movement: speech and movement normal Mood: congruent mood Affect: normal affect Exam Const General: cooperative, comfortable and no acute distress Nutritional Appearance: obese Orientation: alert, awake and oriented x3 Chest Chest: normal inspection of the chest Resp Effort & Inspection: normal respiratory effort Cardio Rate: regular rate Rhythm: regular rhythm GI Inspection: normal to inspection Palpation: soft Skin General skin exam: crusts, dry skin, erythema and lichenification Rashes: rashes noted (within skin markings) Psych Mental Status: mental status grossly normal Speech and Movement: speech and movement normal Mood: congruent mood Affect: normal affect DS: Data Vitals/I&O Vitals and I&O: Vital Signs Temperature 36.4 C L 04/26/21 07:20 Temperature Source Tympanic 04/26/21 07:20 Pulse 74 04/26/21 07:20 Pulse Rhythm Regular 04/26/21 07:45 Respiratory Rate 17 04/26/21 07:20 Respiratory Effort 04/26/21 07:45 Respiratory Depth Normal 04/26/21 07:45 Respiratory Pattern Normal 04/26/21 07:45 Blood Pressure 157/75 H 04/26/21 07:20 Pulse Oximetry 99 04/26/21 07:20 Oxygen Delivery Method Room Air 04/26/21 07:20 Oxygen Flow Rate 0 04/26/21 07:20 Pain Level 0 04/25/21 23:30 Intake & Output 04/25/21 04/26/21 04/26/21 23:59 11:59 23:59 Intake Total 200 / 440 240 / 440 Output Total 400 / 1500 600 / 1200 600 / 1200 Balance -400 / -1330 -400 / -760 -360 / -760 Weight 88.2 kg Intake: Oral 200 / 440 240 / 440 Output: Urine 400 / 1500 600 / 1200 600 / 1200 Other: Urine Color Yellow Yellow Yellow Urine Appearance Clear Cloudy Clear Urine Odor Normal Normal None Comment voided in toilet Stool Size Moderate Stool Characteristics Soft Formed Brown Voiding Methods Toilet Toilet Data Completed and Pending Labs on day of discharge: Labs from last 24 hours 04/26/21 04/26/21 06:14 06:14 WBC 17.85 H RBC 3.73 L Hgb 10.9 L Hct 35.5 L MCV 95.2 H MCH 29.2 MCHC 30.7 L RDW 14.1 Plt Count 308 MPV 11.0 Immature Gran % 0.0 Neutrophils % 75.0 Band Neutrophils % 3 Lymphocytes % 19.0 Monocytes % 1.0 Eosinophils % 1.0 Basophils % 1.0 Nucleated RBC % 0 Absolute Neutrophils 13.92 H Absolute Lymphocytes 3.39 Absolute Monocytes 0.18 Absolute Eosinophils 0.18 Absolute Basophils 0.18 RBC Morphology Normal Sodium 136 Potassium 4.9 D Chloride 103 Carbon Dioxide 26.5 Anion Gap 6.5 BUN 20 H Creatinine 1.6 H Estimated GFR/1.73 m2 31.51 Glucose 247 H D Calcium 7.8 L Preliminary micro results at discharge 04/25/21 07:15 Blood Culture - Preliminary Blood NO GROWTH 24 HOURS 04/25/21 07:20 Blood Culture - Preliminary Blood NO GROWTH 24 HOURS PFSH All Active Problems (Updated 04/26/21 @ 15:24 by Keerthi Grewal NP) Gait instability (Chronic) Falls (Acute) Anxiety (Chronic) Counseling regarding goals of care (Acute) Encounter for palliative care (Acute) Psoriasis (Chronic) Discharge planning issues (Acute) Ambulatory dysfunction (Acute) DVT prophylaxis (Acute) Near syncope (Acute) Cellulitis of right lower extremity (Acute) Impacted cerumen of both ears (Acute) Conductive hearing loss, external ear (Chronic 08/04/15) Sensorineural hearing loss, bilateral (Acute 04/17/13) Medical History (Updated 04/26/21 @ 15:24 by Keerthi Grewal NP) Bilateral knee pain Chronic obstructive lung disease CKD (chronic kidney disease) Essential tremor 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 History of alcohol abuse Hyperlipidemia Hypertension Obesity, morbid, BMI 40.0-49.9 Sensorineural hearing loss, bilateral (04/11/15) Shoulder pain Type 2 diabetes mellitus Uterine cancer Surgical History H/O cataract extraction History of nasal surgery Hx of adenoidectomy Hx of colonoscopy Hx of hysterectomy Hx of tonsillectomy Family History Mother Cancer uterine Drug abuse Daughter Diabetes Hypertension Social History Smoking/Tobacco Use Status: Former Tobacco Use Quit Date: 05/13/89 Smoking risk assessment performed?: Yes Alcohol Intake: never Drug use: Never Substance use type: does not use Household members: children What is your relationship status?: Panel score (0-1 are the most socially isolated patients): 0 Do you feel safe at home: Yes Do you feel safe in your relationship?: Yes
--- NOTE | 2021-04-26 18:21 | CMDISCH_ITS ---
- If Service Date Differs Date of service: 04/26/21 Time of Service: 18:21 LACE Index Scoring Tool - Questions: Length of Stay (in days): 3 Acuity (Admit via E.D.?): No Comorbidities: Diabetes w/o Complication, Liver or Renal Disease E.D. Visits: 0 - Answers: Total Score: 8 Risk of Readmission: Low Risk Care Management Discharge Reason for Hospitalization: Cellulitis RLE, near-syncope Discharge Plan: Jazmyne returned home today with new orders for HH RN, PT, OT, BUSINESS BANKING REPRESENTATIVE from [facility]. Her daughter drove her home via private vehicle. She will follow up with her PCP and discharge plan of care. Patient/Family Education Needs: Review discharge instructions regarding activity levels and medications, discussion of self care needs including ask me three and goals of care. Services Needed at Discharge: Home Health Care Services (new HH RN, PT, OT, BUSINESS BANKING REPRESENTATIVE)
--- NOTE | 2021-04-26 18:27 | PDOC.HHF2F ---
Home Health Certification Home Health Certification: 1. Encounter Date and Reason I certify that Jazmyne Thapa was seen by Kriss Pinon on 04/26/21 and that I had a [id number] encounter with this patient that meets the physician face to face encounter requirements. 2. Clinical Findings Supporting Skilled Need and Homebound Status I certify that home health services are medically necessary, include either intermittent senior care and/or physical/speech therapy, and that this patient is homebound in that absences from the home require considerable and taxing effort and are infrequent or of short duration, or are attributable to the need to receive medical care. [X] (a) Attached documentation from encounter provides clinical findings supporting skilled need and homebound status (including what assistance patient requires to leave the home). The encounter with the patient was in whole, or in part, for the following medical condition, which is the primary reason for home health care: Cellulitis RLE,Near-Syncope Assisted: routine nursing evaluation, medication oversight, disease symptom management Physical and Occupational Therapy: routine evaluation and treatment [employer]ING: routine management Homebound: unable to safely leave house unassisted due to generalized weakness and deconditioning 3. Certification and Authentication I certify that I composed the above information based on my clinical judgement relating to this patient's medical condition and, if applicable, clinical findings communicated to me by the NPP or inpatient physician who performed the Home Health Referral. All further orders will be obtained through (Community Based Physician - PCP)
== END 2021-04-26 17:25 | disposition home health service (06) | DRG 872 ==
PROVIDERS: Nurse Practitioner Family; Admitting Provider Internal Medicine; PCP Internal Medicine; Visit Provider Internal Medicine
DX: A40.8 Other streptococcal sepsis (principal); L03.115 Cellulitis of right lower limb; N17.9 Acute kidney failure, unspecified; Z68.42 Body mass index [BMI] 45.0-49.9, adult; N18.9 Chronic kidney disease, unspecified; E11.22 Type 2 diabetes mellitus with diabetic chronic kidney disease; R55 Syncope and collapse; I12.9 Hypertensive chronic kidney disease with stage 1 through stage 4 chronic kidney disease, or unspecified chronic kidney disease; E78.5 Hyperlipidemia, unspecified; L40.9 Psoriasis, unspecified; H90.3 Sensorineural hearing loss, bilateral; B95.4 Other streptococcus as the cause of diseases classified elsewhere; R26.89 Other abnormalities of gait and mobility; F10.11 Alcohol abuse, in remission; R29.6 Repeated falls; F41.9 Anxiety disorder, unspecified
CPT/HCPCS: 36410; 36415; 80048; 84145; 87040; 93306; 94640; 97110; 97161; 97530; 73630; 83735; 85025; 85049; 86140; 93971; 99223; 99232; 99233; 99239; J1644; J3475; J3490; J7512